=== PATIENT | male | born 1990 | race Caucasian/White ===

== ENCOUNTER 2016-04-21 | Emergency (ER) | payer SELFPAY ==
--- NOTE | 2016-04-21 12:48 | ED ---
General Adult HPI - General Chief complaint: Upper Respiratory Infection Stated complaint: FLU LIKE SYMPTOMS Time Seen by Provider: 04/21/16 12:18 Source: patient, RN notes reviewed Mode of arrival: ambulatory - History of Present Illness Initial comments: Chief complaint history of present illness this is a 18-year-old male with a complaint of cough for 4 days green in color. Aches and pains. - Related Data Previous Rx's Medication Instructions Recorded Amoxicillin 500 mg PO Q12HR 10 Days 10/21/15 Fluticasone Nasal Joice [Flonase 1 spray EA NOSTRIL DAILY PRN #1 10/21/15 Nasal Joice] bottle Azithromycin [Zithromax Z-pack] 250 mg PO DIRECTED #6 tab 04/21/16 Allergies Allergy/AdvReac Type Severity Reaction Status Date / Time No Known Allergies Allergy Verified 04/21/16 12:05 Review of Systems ROS Statement: Those systems with pertinent positive or pertinent negative responses have been documented in the HPI. Review of systems respiratory inflammation is productive cough. No chest pain. No nausea no vomiting . No complaint chest pain. No complaint of any neuro deficits. All systems were otherwise reviewed. Past medical problems none. Surgeries none. Family history no cancers. ALLERGIES seasonal. Patient quit smoking 6 months ago. Denies alcohol use. 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 ROS Other: All systems not noted in ROS Statement are negative. Past Medical History Past Medical History: No Reported History Additional Past Medical History / Comment(s): PREVIOUS DRUG ABUSE History of Any Multi-Drug Resistant Organisms: None Reported Past Surgical History: No Surgical Hx Reported Past Psychological History: No Psychological Hx Reported Smoking Status: Former smoker Past Alcohol Use History: None Reported Past Drug Use History: None Reported General Exam - General Exam Comments Initial Comments: General: The patient is awake and alert, complaining of productive green colored cough. Vital signs temp 97.1 pulse 54 over story rate 18 pulse ox on percent room air blood pressure 124/72. Mildly elevated systolic of 124 noted patient will be advised to follow-up with a family physician in the next 1-4 weeks. Eye: Pupils are equal, round and reactive to light, extra-ocular movements are intact ; there is normal conjunctiva bilaterally. No signs of icterus. Ears, nose, mouth and throat: There are moist mucous membranes and no oral lesions. Neck: The neck is supple, there is no tenderness . Cardiovascular: There is a regular rate and rhythm. No murmur, rub or gallop is appreciated. Respiratory: Lungs are clear to auscultation, respirations are non-labored, breath sounds are equal. No wheezes, stridor, rales, or rhonchi. Productive cough. Gastrointestinal: No abdominal pain. No difficulty eating. Skin: Multiple tattoos right arm to shoulder. Course Vital Signs 04/21/16 12:02 Temperature 97.1 F L Pulse Rate 54 L Respiratory 18 Rate Blood Pressure 124/72 O2 Sat by Pulse 100 Oximetry Medical Decision Making - Medical Decision Making Patient's lungs are clear to auscultation. He will be placed on Z-Glenn to be taken as directed. Told to use Tylenol or ibuprofen for pain. Follow-up with on-call physician to the emergency room. Disposition Clinical Impression: Upper respiratory infection Disposition: HOME SELF-CARE Condition: Fair Instructions: Upper Respiratory Infection (ED) Additional Instructions: Increase fluids. Use Tylenol or ibuprofen for discomfort. Take Z-Glenn until completed. Follow-up on-call physician as needed Prescriptions: Azithromycin [Zithromax Z-pack] 250 mg PO DIRECTED #6 tab Referrals: None,Stated [Primary Care Provider] - 1-2 days Luiz Benton MD [REFERRING] - 1-2 days Time of Disposition: 12:48
== END 2016-04-21 13:04 | disposition home or self-care (01) ==
CPT/HCPCS: 99282